=== PATIENT | male | born 1995 | race Caucasian/White ===

== ENCOUNTER 2017-08-16 22:54 | Inpatient (IN) | payer OTHER ==
[~2017-08-16] VITALS: Ht 170.2 cm; Wt 83.0 kg
[2017-08-16 23:11] VITALS: BP 132/77
--- NOTE | 2017-08-16 23:15 | NUR ---
PATIENT AMBULATED TO ER CHAIR D.
--- NOTE | 2017-08-16 23:17 | NUR ---
PATIENT IS A 22 Y/O MALE WHO PRESENTS TO THE ED C/O ABD PAIN. PT STATES THAT HIS LOWER ABD STARTED HURTING AT 1999. PT REPORTS 10/10 SHARP LOWER ABD PAIN. PT DENIES CP, SOB, REPORTS VOMITING DENIES NAUSEA/DIARRHEA. PT AAOX4, RR EVEN/UNLABORED. PT REPOSITIONED FOR COMFORT, BED IN LOWEST POSITION. ER MD DR. MOCK NOTIFIED. WILL CONTINUE TO MONITOR.
[2017-08-16] MEDS ORDERED: MORPHINE SULFATE 4 MG/ML SYR IVP ONE (23:30)
[2017-08-16] MEDS ORDERED: ONDANSETRON 4 MG/2 ML VIAL IVP ONE (23:30)
[2017-08-16] MEDS ORDERED: NACL 0.9% 1,000 ML IV ONE (23:30)
[2017-08-16 23:50] LABS: HEMATOCRIT 50.6 % (36-52); MEAN CORPUSCULAR HEMOGLOBIN 30 pg (27-31); MEAN CORPUSCULAR HGB CONC 34 g/dL (33-37); MEAN CORPUSCULAR VOLUME 88.2 fL (80-94); PLATELET COUNT (AUTO) 251 K/uL (140-450); RED BLOOD CELL COUNT(AUTO) 5.74 MIL/uL (4.20-6.10); RED CELL DISTRIBUTION WIDTH 13.8 % (11.6-13.7)
[2017-08-16 23:51] LABS: APPEARANCE,URINE CLEAR (CLEAR); BILIRUBIN,URINE NEGATIVE (NEGATIVE); BLOOD, URINE NEGATIVE (NEGATIVE); COLOR,URINE YELLOW (YELLOW); LEUKOCYTE ESTERASE ,URINE NEGATIVE (NEGATIVE); NITRITE, URINE NEGATIVE (NEGATIVE); PH,URINE 5.5 (5.0-9.0); UGLUCOSE NEGATIVE (NEGATIVE)
[2017-08-16 23:57] LABS: CARBON DIOXIDE 30.2 mmol/L (21-32); POTASSIUM 4.2 mmol/L (3.5-5.1)
[2017-08-17 00:03] LABS: ALBUMIN 4.9 g/dL (3.4-5.0); TOTAL BILIRUBIN 0.9 mg/dL (0.0-1.0)
[2017-08-17 00:06] LABS: WHITE BLOOD COUNT (AUTO) 15.6 K/uL (4.8-10.8)
[2017-08-17 00:07] LABS: LYMPHOCYTES % (MANUAL) 5 % (20-46); MONOCYTES % (MANUAL) 1 % (5-12)
[2017-08-17] MEDS ORDERED: MORPHINE SULFATE 4 MG/ML SYR IVP ONE ×2 (00:10→04:20)
--- NOTE | 2017-08-17 00:19 | NUR ---
PATIENT MOVED TO ER BED 11.
--- NOTE | 2017-08-17 01:40 | NUR ---
Patient appears to be resting comfortably in bed. Vital Signs within normal limits. Respirations even and unlabored.
[2017-08-17] MEDS ORDERED: PIPERACILLIN/TAZOBACTAM 3.375 GM in DEXTROSE 5% 50 ML IV ONE (01:45)
[2017-08-17] MEDS ORDERED: fentaNYL 0.05 MG/ML VIAL IVP ONE ×3 (01:45→03:50)
[2017-08-17] MEDS ORDERED: NACL 0.9% 1,000 ML IV ONE (01:45)
[2017-08-17] MEDS ORDERED: fentaNYL 0.05 MG/ML VIAL ONE (01:46)
[2017-08-17] MEDS ORDERED: PIPERACILLIN/TAZOBACTAM 3.375 GM VIAL IV ONE (02:11)
[2017-08-17] MEDS ORDERED: ONDANSETRON 4 MG/2 ML VIAL IVP ONE (03:50)
--- NOTE | 2017-08-17 04:00 | NUR ---
PT C/O PAIN AND NAUSEA, ADMINISTERED DUE MEDS ORDERED. PT TAKEN TO CT AT THIS TIME
--- NOTE | 2017-08-17 04:32 | NUR ---
CRITICAL CT RESULTS RECEIVED. SMALL BOWEL OBSTRUCTION, SMALL AMOUNT OF FREE FLUID WITHIN THE PELVIS. ER MD MADE AWARE.
--- NOTE | 2017-08-17 04:55 | NUR ---
INSERTED NGT WITH EDUCATION, PT AGREED AND VERBALIZED UNDERSTANDING. AFTER NGT INSERTION, PT STARTED VOMITING AND C/O DYSPNEA AND DISCOMFORT. PLACEMENT VERIFIED, SUCTIONED 300ML BROWN, SEROUS, BLOOD-TINGED DRAINAGE AND 300ML EMESIS. PT REFUSED TO KEEP NGT IN PLACE DESPITE EDUCATION, NGT REMOVED. PT REPORTS RELIEF OF PAIN AND NAUSEA. DR MOCK MADE AWARE. PT CLEANED AND CHANGED.
[2017-08-17] MEDS: NACL 0.9% 1,000 ML IV SCH ×3 (05:28→16:15)
[2017-08-17] MEDS ORDERED: HYDROcodone/APAP 7.5/325 MG 1 TAB PO PRN (05:30)
[2017-08-17] MEDS ORDERED: MORPHINE SULFATE 4 MG/ML SYR IVP PRN (05:45)
--- NOTE | 2017-08-17 06:00 | NUR ---
Patient will be admitted to care of [facility]. Admited to TELE. Will go to room 106A. Belongings list completed. Report to JUSTIN PATEL.
[2017-08-17 06:03] VITALS: BP 113/85
--- NOTE | 2017-08-17 06:15 | NUR ---
PT ARRIVED ON UNIT FROM THE ER, REPORT GIVEN BY HEATHER ANDERSON. PT IN STABLE CONDITION. NO S/S OF DISTRESS NOTED. PT AMBULATED FROM GURNEY TO THE BED. PT IS ON RA. IV TO L AC 18G, PATENT AND INTACT. SKIN WARM AND DRY TO TOUCH. RR EVEN/UNLABORED. INITIAL ASSESSMENT COMPLETED. PLAN OF CARE DISCUSSED WITH PT, VERBALIZED UNDERSTANDING. ALL SAFETY PRECAUTIONS MET, CALL LIGHT WITHIN REACH, BOARD UPDATED, WILL CONTINUE TO MONITOR
--- NOTE | 2017-08-17 06:35 | NUR ---
PT STATES HE CANNOT HANDLE THE PAIN ANYMORE, CONTACTED DR. KO SHE STATED IT IS OKAY TO GIVE MORPHINE
--- NOTE | 2017-08-17 07:03 | NUR ---
DR. CYR AND DR. KO IN TO SEE PT, THEY TOLD PT HE NEEDS THE NG TUBE HES BEEN REFUSING FOR THE OBSTRUCTION TO GET BETTER, PT AGREED
[2017-08-17] MEDS ORDERED: BENZOCAINE 20% 57 GM CAN MC SCH (07:22)
--- NOTE | 2017-08-17 07:25 | NUR ---
REPORT GIVEN TO DAY SHIFT NURSE FOR CONTINUITY OF CARE, PT IN STABLE CONDITION
--- NOTE | 2017-08-17 07:26 | NUR ---
RECEIVED SBAR REPORT FROM NIGHT RN AT PT BEDSIDE. PATIENT SEEN RESTING IN BED WITH MOTHER AT BEDSIDE. ALERT AND ORIENTED. RESTING INTERMITTENTLY, DENIES DISCOMFORT AT THIS TIME. CALL LIGHT WITHIN REACH. POSITIONED FOR COMFORT.
[2017-08-17 07:57] LABS: PROTHROMBIN TIME 10.7 secs (10.8-13.4)
[2017-08-17 08:00] VITALS: BP 142/85
[2017-08-17 08:06] LABS: CHOL/HDL RATIO 2.8 (1-4.5); FREE T4 (FREE THYROXINE) 0.9 ng/dL (0.76-1.46); MAGNESIUM 1.8 mg/dL (1.8-2.4); PHOSPHORUS 4.4 mg/dL (2.5-4.9); THYROID STIMULATING HORMONE 0.42 uIU/mL (0.34-3.74)
--- NOTE | 2017-08-17 08:30 | NUR ---
PATIENT SEEN BY DR. CYR AT BEDSIDE. MD AWARE OF INCREASED PAIN 02/17, MD PLACED ORDER FOR TORADOL IVP. MEDICATED ORDERED. NGT PLACED AT BEDSIDE TO LEFT NARE. PATIENT HAD EPISODE OF N/V, MEDICATED ORDERED WITH ZOFRAN IVP. WILL CONTINUE TO MONITOR.
[2017-08-17] MEDS: ONDANSETRON 4 MG/2 ML VIAL IVP PRN ×4 (08:45→22:08)
[2017-08-17] MEDS: KETOROLAC 30 MG/ML VIAL IVP PRN ×2 (08:45→18:17)
[2017-08-17 08:54] LABS: BARBITURATE, URINE NEG. ng/ml (NEG <=200); BENZODIAZEPINE, URINE NEG. ng/mL (NEG <=200); CANNABINOID, URINE NEG. ng/mL (NEG <=50); COCAINE, URINE NEG. ng/mL (NEG <=300); OPIATE, URINE NEG. ng/mL (NEG <=2000); PHENCYCLIDINE SCREEN,URINE NEG. ng/mL (NEG <=25)
[2017-08-17] MEDS: DOCUSATE SODIUM 100 MG GELCAP PO SCH ×2 (09:00→21:00)
--- NOTE | 2017-08-17 10:38 | NUR ---
PATIENT HAS BEEN SCREENED AND CATEGORIZED LOW NUTRITION RISK. PATIENT WILL BE SEEN WITHIN 7 DAYS OF ADMISSION. 08/23/[address] Addendum: 08/17/17 at [address] PATIENT HAS BEEN RESCREENED AND RECATEGORIZED MODERATE NUTRITION RISK. PATIENT WILL BE SEEN WITHIN 3-5 DAYS OF ADMISSION. 08/19/17 - 08/21/[address]
--- NOTE | 2017-08-17 11:38 | NUR ---
PATIENT REPORTS REDUCED PAIN, ASSISTED IN AMBULATION TO BATHROOM. NO S/S OF ACUTE DISTRESS NOTED. PER DR. CYR NGT TO LOW INTERMITTENT SUCTION.
[2017-08-17 12:00] VITALS: BP 127/85
[2017-08-17] MEDS ORDERED: BUPIVACAINE-MPF 0.25% 30 ML VIAL INJ ONE (12:51)
--- NOTE | 2017-08-17 13:00 | NUR ---
PATIENT HAVING INCREASED AGITATION/ANXIETY. SPOKE WITH DR. CYR REGARDING PATIENT CONDITION, NEW ORDERS RECEIVED. PATIENT REFUSES NGT AT THIS TIME. PROCEDURE AND PLAN OF CARE DISCUSSED WITH PATIENT BY DR. CYR AND EDUCATION PROVIDED REGARDING NGT PLACEMENT. PATIENT CONTINUES TO REFUSE AND STATES HE IS UNABLE TO BREATHE. REMOVED NGT AT THIS TIME, NO S/S OF ACUTE DISTRESS NOTED.
[2017-08-17] MEDS ORDERED: LORazepam 0.5 MG TAB PO PRN (13:05)
--- NOTE | 2017-08-17 13:25 | NUR ---
PATIENT MEDICATED ORDERED WITH ATIVAN PO. PATIENT RESTING IN BED. NO S/S OF ACUTE DISTRESS NOTED.
--- NOTE | 2017-08-17 14:48 | NUR ---
PATIENT SLEEPING. NO S/S OF ACUTE DISTRESS NOTED. DR. CYR MADE AWARE OF PATIENT NGT REFUSAL.
[2017-08-17] MEDS: traMADol 50 MG TAB PO PRN (15:08)
--- NOTE | 2017-08-17 15:17 | NUR ---
CM NOTE INITIAL REVIEW FAXED TO [facility] / FAX# [phone]
[2017-08-17 16:00] VITALS: BP 131/83
--- NOTE | 2017-08-17 16:16 | NUR ---
SECOND BAG OF IVF STARTED ON PATIENT. DENIES N/V. PAIN 08/18 PREVIOUSLY MEDICATED. NO S/S OF ACUTE DISTRESS NOTED. CONTINUES TO REFUSE NGT PLACEMENT.
--- NOTE | 2017-08-17 18:52 | NUR ---
PATIENT MEDICATED ORDERED FOR PAIN AND NAUSEA. NO S/S OF ACUTE DISTRESS NOTED. PATIENT SEEN BY DR. PEREIRA AT BEDSIDE, NEW ORDERS RECEIVED FOR CT ABD WITH CONTRAST. PATIENT MADE AWARE OF PLAN OF CARE BY MD AT BEDSIDE, IN AGREEMENT. CONTINUED ON NPO. IV STARTED ON KENROY #20, PATENT AND INTACT. PT POSITIONED FOR COMFORT.
--- NOTE | 2017-08-17 19:30 | NUR ---
SBAR REPORT GIVEN TO RN MARLENE AT PT BEDSIDE. NO S/S OF ACUTE DISTRESS NOTED. STATES RELIEF OF PAIN. FAMILY AT BEDSIDE.
--- NOTE | 2017-08-17 19:32 | NUR ---
RECEIVED PT FROM AFIA SINGH RN PT IS AAOX4 AMBULATORY IV N RT HAND INFUSING WELL HL ON LEF AC PATENT ON TELEMETRY SR PT WILL START PREPARATION FO CT ABD AND PELVIS WAITNG FOR RADIOLOGIST TECH TO GIVE PREPARTAION FOR TH TEST
[2017-08-17 20:00] VITALS: BP 124/64
--- NOTE | 2017-08-17 22:00 | NUR ---
PT ON CT ORAL CONTRAST PREPARATION WELL TOLERATED AND PT ALREADY HAD 2 BOWEL MOVEMENT ON TELE SR
[2017-08-18] VITALS: BP 120/64
--- NOTE | 2017-08-18 01:30 | NUR ---
PT CAME BACK FROM CT ABD WE WILL FOLLOW RESULT WITH THE DR PEREZ PT REMAIN WITH NOT PAIN
[2017-08-18 04:00] VITALS: BP 115/62
--- NOTE | 2017-08-18 04:00 | NUR ---
DR PEREIRA CALL AND WAS NOTIFY CT ABD RESULT
--- NOTE | 2017-08-18 04:30 | NUR ---
PT HAS ANOTHER BM SEMILIQUID STOOL ON TELEMETRY SR
[2017-08-18] MEDS: KETOROLAC 30 MG/ML VIAL IVP PRN ×3 (04:55→23:49)
--- NOTE | 2017-08-18 06:18 | NUR ---
PT SLEEPING NOT PAIN NOTED ON TELEMETRY SR PENDING SBFT THIS AM
--- NOTE | 2017-08-18 07:20 | NUR ---
RECEIVED REPORT AT BEDSIDE FROM ORTHOPAEDIC SURGEON NURSE FOR CONTINUITY OF CARE. PATIENT STABLE.
[2017-08-18 08:00] VITALS: BP 125/66
--- NOTE | 2017-08-18 08:00 | NUR ---
INITIAL ASSESSMENT PERFORMED.PATIENT ALERT AND ABLE TO VERBALIZE NEEDS. NO ACUTE DISTRESS NOTED. NO SOB. RESP EVEN AND UNLABORED/ LUNG SOUNDS CLEAR. PATIENT WITH BOWEL SOUNDS ACTIVE. PATIENT HAD BM THIS AM STATED IT WAS SOFT MUSH BUT FORMED.PATIENT TO GET XRAY OF SBO. RADIOLOGY INFORMED THAT PATIENT MAY STILL HAVE CONTRAST IN SYSTEM AND XRAY OF OF SBO WILL BE DONE FIRST WITHOUT THE UPPER GI WITH GASTROGAFFIN. PATIENT MADE AWARE. PATIENT WITH IV TO RAC 20G AND R HAND 22G. BOTH SL. PATENT AND INTACT. PATIENT CONT NPO.PATIENT DENIES PAIN AT THIS TIME. SKIN INTACT. PLAN OF CARE DISCUSSED WITH PATIENT AT BEDSIDE. PATIENT VERBALIZED UNDERSTANDING AND AGREEMENT. PATIENT ORIENTED TO ROOM. CALL LIGHT WITHIN REACH. WILL CONT TO MONITOR.
[2017-08-18] MEDS: DOCUSATE SODIUM 100 MG GELCAP PO SCH ×2 (09:00→21:58)
--- NOTE | 2017-08-18 09:43 | NUR ---
WILDA RODRIGEZ PATIENT STATED HE HAS BEEN HAVING SEVERAL BM THIS AM.
--- NOTE | 2017-08-18 10:30 | NUR ---
PATIENT IN ROOM SITTING IN CHAIR. ASKED PATIENT PAIN LEVEL STATED HE HAD SOME BLOATING. ENCOURAGED PATIENT TO AMBULATE TO SEE IF IT WOULD ASSIST WITH BLOATING. PATIENT AGREED AND AMBULATING. TO F/U WITH PAIN LEVEL AFTER.
[2017-08-18 11:29] LABS: BASOPHILS % (AUTO) 0.2 % (0.0-2.0); EOSINOPHILS # (AUTO) 0.1 K/uL (0-0.4); EOSINOPHILS % (AUTO) 1.8 % (0.0-4.0); HEMATOCRIT 44.6 % (36-52); HEMOGLOBIN 15.1 g/dL (12.0-18.0); LYMPHOCYTES # (AUTO) 1.3 K/uL (2.0-11.5); LYMPHOCYTES % (AUTO) 22.6 % (20.5-51.1); MEAN CORPUSCULAR HEMOGLOBIN 30 pg (27-31); MEAN CORPUSCULAR HGB CONC 34 g/dL (33-37); MONOCYTES # (AUTO) 0.8 K/uL (0.8-1.0); MONOCYTES % (AUTO) 13.7 % (1.7-9.3); NEUTROPHILS # (AUTO) 3.6 K/uL (1.8-7.7); NEUTROPHILS % (AUTO) 61.7 % (42.2-75.2); PLATELET COUNT (AUTO) 219 K/uL (140-450); RED BLOOD CELL COUNT(AUTO) 5.01 MIL/uL (4.20-6.10); RED CELL DISTRIBUTION WIDTH 13.6 % (11.6-13.7); WHITE BLOOD COUNT (AUTO) 5.8 K/uL (4.8-10.8)
[2017-08-18 11:51] VITALS: BP 126/80
[2017-08-18 12:08] LABS: CARBON DIOXIDE 30.5 mmol/L (21-32)
[2017-08-18 12:12] LABS: MAGNESIUM 2.1 mg/dL (1.8-2.4); PHOSPHORUS 2.3 mg/dL (2.5-4.9)
--- NOTE | 2017-08-18 12:30 | NUR ---
RADIOLOGY CALLED TO NOTIFY THAT PATIENT WILL BE PICKED UP VIA WC FOR UPPER GI WITH GASTROGAFFIN BY 1300. PATIENT AWARE AND IN AGREEMENT. MOTHER AT BEDSIDE. CALL LIGHT WITHIN REACH. WILL CONT TO MONITOR.
[2017-08-18 12:46] LABS: ANION GAP 11.5 (8-16)
--- NOTE | 2017-08-18 13:20 | NUR ---
PATIENT TAKEN TO RADIOLOGY. PATIENT SL. TICKET TO RIDE IN TECH POSSESSION. PATIENT STABLE.
--- NOTE | 2017-08-18 13:50 | NUR ---
FAXED TAZ REVIEW TO [facility] [phone] PHONE [phone]
--- NOTE | 2017-08-18 14:00 | NUR ---
PATIENT RETURNED FROM RADIOLOGY WITHOUT DIFFICULTIES. NO ACUTE DISTRESS NOTED. DENIES PAIN AT THIS TIME. WILL CONT TO MONITOR.
[2017-08-18 16:00] VITALS: BP 113/64
--- NOTE | 2017-08-18 16:30 | NUR ---
LAST XRAY DONE. PENDING RESULTS. PATIENT STATED HE HAD A LOOSE STOOL AFTER THE XRAY WAS DONE. PATIENT DENIES PAIN WILL CONT TO MONITOR.
--- NOTE | 2017-08-18 18:00 | NUR ---
PATIENT ALERT AND ABLE TO VERBALIZE NEEDS. MADE MD AWARE THAT RESULTS ARE AVAILABLE AND SHE STATED SHE WOULD CONSULT WITH SURGEON RNADALL. WILL CONT TO MONITOR PT.
[2017-08-18] MEDS: traMADol 50 MG TAB PO PRN (18:46)
[2017-08-18] MEDS: ONDANSETRON 4 MG/2 ML VIAL IVP PRN (18:50)
--- NOTE | 2017-08-18 19:15 | NUR ---
ENDORSED REPORT TO STRIP PRESSER NURSE AT BEDSIDE FOR CONT OF CARE. PATIENT STABLE.
--- NOTE | 2017-08-18 19:16 | NUR ---
RECEIVED PATIENT REPORT FROM [facility] NURSE TAYLOR. PT WAS AAO X4. AMBULATORY HEP LOCK R HAND 22G AND LAC 20G. ON TELEMETRY SR. DR PEREIRA AND DR MILLER AT BEDSIDE ASSESSING PATIENT AND WILL BE CLEAR LIQUID DIET TOLERATED AND ORDERS TO FOLLOW. NO SOB. NO PAIN AT THIS TIME. INITIAL ASSESSMENT DONE. BED LOWERED. CALL LIGHT WITHIN REACH. WILL CONTINUE TO MONITOR.
[2017-08-18 20:00] VITALS: BP 116/77
--- NOTE | 2017-08-18 22:00 | NUR ---
WENT TO ASSESS PT. PT AWAKE. NO PAIN OR NAUSEA. PT IS WATCHING TV RELAXING. NO SOB. NO S/S. PT TOLERATING CLEAR LIQUIDS WELL.
[2017-08-19] VITALS: BP 120/71
--- NOTE | 2017-08-19 00:01 | NUR ---
ASSESSED PATIENT. PT IN PAIN AND WILL MEDICATE. PT ALSO REQUESTED MORE JUICE AND ICE. PT IS TOLERATING CLEAR LIQUIDS WELL. WILL CONTINUE TO MONITOR.
[2017-08-19 04:00] VITALS: BP 102/69
[2017-08-19 06:42] LABS: BASOPHILS % (AUTO) 0.2 % (0.0-2.0); EOSINOPHILS # (AUTO) 0.2 K/uL (0-0.4); EOSINOPHILS % (AUTO) 2.4 % (0.0-4.0); HEMATOCRIT 41.4 % (36-52); LYMPHOCYTES # (AUTO) 1.6 K/uL (2.0-11.5); LYMPHOCYTES % (AUTO) 20.8 % (20.5-51.1); MEAN CORPUSCULAR HEMOGLOBIN 30 pg (27-31); MEAN CORPUSCULAR HGB CONC 34 g/dL (33-37); MEAN CORPUSCULAR VOLUME 88.7 fL (80-94); MONOCYTES # (AUTO) 1.2 K/uL (0.8-1.0); MONOCYTES % (AUTO) 15.9 % (1.7-9.3); NEUTROPHILS # (AUTO) 4.6 K/uL (1.8-7.7); NEUTROPHILS % (AUTO) 60.7 % (42.2-75.2); PLATELET COUNT (AUTO) 214 K/uL (140-450); RED BLOOD CELL COUNT(AUTO) 4.66 MIL/uL (4.20-6.10); RED CELL DISTRIBUTION WIDTH 13.5 % (11.6-13.7); WHITE BLOOD COUNT (AUTO) 7.6 K/uL (4.8-10.8)
--- NOTE | 2017-08-19 07:16 | NUR ---
RECEIVED REPORT AT BEDSIDE FROM FACING GRINDER NURSE.PATIENT STABLE IN BED . RESPONDING APPROPRIATELY. WILL CONT TO MONITOR.
[2017-08-19 07:26] LABS: ANION GAP 12.9 (8-16); CARBON DIOXIDE 28.8 mmol/L (21-32); CREATININE 0.9 mg/dL (0.7-1.3); POTASSIUM 3.7 mmol/L (3.5-5.1)
--- NOTE | 2017-08-19 07:31 | NUR ---
GAVE REPORT TO DAY SHIFT JOSE LUIS ANDERSON NURSE AT BEDSIDE FOR CONTINUITY OF CARE. Addendum: 08/19/17 at 0734 by Amber Mendes RN GAVE REPORT TO DAY SHIFT NURSE TAYLOR ANDERSON AT BEDSIDE FOR CONTINUITY OF CARE.
[2017-08-19 07:33] LABS: MAGNESIUM 1.9 mg/dL (1.8-2.4); PHOSPHORUS 3.8 mg/dL (2.5-4.9)
--- NOTE | 2017-08-19 07:56 | NUR ---
INITIAL ASSESSMENT PERFORMED. PATIENT ALERT AND ABLE TO MAKE NEEDS KNOWN. NO ACUTE DISTRESS NOTED. DENIES PAIN AT THIS TIME. LUNG SOUNDS CLEAR . BOWEL SOUNDS ACTIVE. PATIENT REPORTED HAVING A FEW BMS DURING THE NIGHT. PATIENT STATED HE IS TOLERATING THE CLEAR LIQUID DIET WELL. NO N/V REPORTED. WILL REPORT TO MD FOR FULL LIQUID DIET. PLAN OF CARE DISCUSSED WITH PATIENT. SKIN INTACT. IV SITES PATENT AND INTACT TO LAC 20G AND R HAND 22G. SL. PATIENT ORIENTED TO ROOM. CALL LIGHT WITHIN REACH. WILL CONT OT MONITOR.
[2017-08-19 07:58] VITALS: BP 113/67
[2017-08-19] MEDS: DOCUSATE SODIUM 100 MG GELCAP PO SCH ×2 (09:00→20:26)
--- NOTE | 2017-08-19 09:00 | NUR ---
HELD COLACE THIS AM. PATIENT STATES HE IS HAVING FREQUENT BMS AND DOES NOT NEED MEDICATION.
--- NOTE | 2017-08-19 10:24 | NUR ---
PATIENT TRANSFER OF CARE FROM TELEMETRY TO MARTY SURG. PATIENT TELE MONITOR REMOVED. PATIENT AWAKE ALERT IN BED WATCHING TV. PATIENT. INFORMED DR CYR PT TOLERATING DIET WELL OF CLEAR LIQUIDS AND WILL UPGRADE TO FULL LIQUIDS.
--- NOTE | 2017-08-19 11:47 | NUR ---
PATIENT ALERT AND ABLE TO MAKE NEEDS KNOWN. NO ACUTE DISTRESS NOTED . NO C/O PAIN OR DISCOMFORT. WILL CONT TO MONITOR.
--- NOTE | 2017-08-19 13:06 | NUR ---
PATIENT HAD FULL LIQUID DIET FOR LUNCH. PATIENT TOLERATED WELL. HE STATED NO N/V. HE FELT SLIGHTLY BLOATED BUT BELIEVES IT MAY BE THAT HE ATE TO FAST. FNS IN TO SEE PATIENT WELL. WILL CONT TO MONITOR.
--- NOTE | 2017-08-19 14:33 | NUR ---
FAXED TAZ REVIEW TO [facility] [phone] PHONE [phone]
--- NOTE | 2017-08-19 15:00 | NUR ---
PATIENT ALERT AND ABLE TO MAKE NEEDS KNOWN. NO ACUTE DISTRESS NOTED. DENIES PAIN AT THIS TIME. WILL CONT TO MONTIOR.
[2017-08-19 16:00] VITALS: BP 124/76
--- NOTE | 2017-08-19 16:48 | NUR ---
08/19/17 RD INITIAL ASSESSMENT COMPLETED PLEASE REFER TO NUTRITION ASSESSMENT UNDER CARE ACTIVITY FOR ESTIMATED NUTRITIONAL NEEDS. 1.CONTINUE FULL LIQUID DIET, TOLERATED BY PT 2. PROVIDE PT WITH FULL LIQUID DIET EDUCATION 3. RD TO FOLLOW-UP 3-5 DAYS, MODERATE RISK ANGELES CRUZ RD
--- NOTE | 2017-08-19 17:45 | NUR ---
PATIENT HAVING DINNER OF FULL LIQUIDS TOLERATING WELL. WILL CONT TO MONITOR.
--- NOTE | 2017-08-19 19:00 | NUR ---
ENDORSED REPORT TO LEGAL BILLING ANALYST NURSE AT BEDSIDE FOR CONTINUITY OF CARE. PATIENT STABLE.
--- NOTE | 2017-08-19 19:30 | NUR ---
NO COMPLAINS. FAMILY AT BEDSIDE. PLAN OF CARE DISCUSSED WITH PATIENT AND FAMILY MEMBER, VERBALIZED UNDERSTANDING WELL. CALL LIGHT WITHIN REACH.
--- NOTE | 2017-08-19 19:30 | NUR ---
ASSUMED CARE OF PATIENT, AWAKE, ALERT AND ORIENTED. NO COMPLAINS. FAMILY AT BEDSIDE. CALL LIGHT WITHIN REACH.
--- NOTE | 2017-08-19 20:00 | NUR ---
PLAN OF CARE DISCUSSED WITH PATIENT AND FAMILY MEMBER, VERBALIZED UNDERSTANDING WELL. CALL LIGHT WITHIN REACH.
--- NOTE | 2017-08-19 21:30 | NUR ---
AMBULATING IN HALLWAY. NO COMPLAINS.
[2017-08-19 23:58] VITALS: BP 122/70
--- NOTE | 2017-08-19 23:59 | NUR ---
SNACK REQUESTED AND GIVEN. NO COMPLAINS. VITAL SIGNS STABLE. AFEBRILE. CALL LIGHT WITHIN REACH.
--- NOTE | 2017-08-20 05:12 | NUR ---
NO COMPLAINS. ASLEEP NOTED. CALL LIGHT WITHIN REACH.
--- NOTE | 2017-08-20 07:23 | NUR ---
ENDORSED CARE AT BEDSIDE WITH PRANEETH RN, PATIENT IN STABLE CONDITION.
--- NOTE | 2017-08-20 07:30 | NUR ---
RECEIVED PT ON BED AAOX4. NO SOB NOTED. NO C/O PAIN AT THIS TIME. IV TO RT AND LT HAND PATENT AND INTACT. CHEST, CLEAR. ABDOMEN SOFT, BOWEL SOUNDS PRESENT. NO EDEMA NOTED. INSTRUCTED PT TO CALL FOR ASSISTANCE, CALL LIGHT WITHIN REACH. PT VERBALIZED UNDERSTANDING.
[2017-08-20 08:00] VITALS: BP 117/67
--- NOTE | 2017-08-20 08:15 | NUR ---
PT TOLERATED FULL LIQUID DIET. NO N&V NOTED.
--- NOTE | 2017-08-20 08:55 | NUR ---
FAXED TAZ REVIEW TO [facility] [phone] PHONE [phone]
[2017-08-20] MEDS: DOCUSATE SODIUM 100 MG GELCAP PO SCH (09:00)
[2017-08-20] MEDS ORDERED: SIME80CT70 PO (09:08)
--- NOTE | 2017-08-20 10:00 | NUR ---
PT AMBULATING IN THE HALLWAY COUPLE TIMES. NO SOB NOTED. NO COMPLAINTS MADE. PT TOLERATED ACTIVITY WELL. PT STATED HE HAS BEEN PASSING GAS.
--- NOTE | 2017-08-20 12:30 | NUR ---
PT TOLERATED FULL LIQUID DIET FOR LUNCH. NO N&V NOTED.
--- NOTE | 2017-08-20 13:00 | NUR ---
DISCHARGE INSTRUCTIONS AND PRESCRIPTIONS GIVEN TO PT WHICH VERBALIZED FULL UNDERSTANDING OF THE INSTRUCTIONS GIVEN AND THE NEED TO FOLLOW UP WITH [facility] AND DR. PEREIRA IN 7 DAYS. ARM BANDS AND IV REMOVED, CANNULA TIP INTACT. ESCORTED PT TO THE FRONT LOBBY, AMBULATORY, IN STABLE CONDITION. NO COMPLAINTS MADE.
== END 2017-08-20 13:00 | disposition home or self-care (01) | DRG 389 ==
LOC: MED 22:54 → MTU 08-17 05:33
PROVIDERS: ADMIT Family Medicine Sports Medicine; ATTEND Family Medicine Sports Medicine
DX: K56.609 Unspecified intestinal obstruction, unspecified as to partial versus complete obstruction (principal); R65.10 Systemic inflammatory response syndrome (SIRS) of non-infectious origin without acute organ dysfunction; E66.3 Overweight; R74.0 Nonspecific elevation of levels of transaminase and lactic acid dehydrogenase [LDH]; K37 Unspecified appendicitis; Z53.20 Procedure and treatment not carried out because of patient's decision for unspecified reasons; Z68.28 Body mass index [BMI] 28.0-28.9, adult
CPT/HCPCS: 36415; 71045; 74241; 74250; 76705; 80048; 80053; 80305; 81003; 82150; 83036; 83605; 83690; 83735; 83880; 84100; 84439; 84443; 84484; 85025; 85610; 85730; 87040; 87081; 93005; 96361; 96365; 96375; 96376; 99285; J1885; J2270; J2405; J2543; J3010; J3490; J7030; Q0092; Q9967

== ENCOUNTER 2017-12-05 13:21 | Emergency (ER) | payer OTHER ==
[~2017-12-05] VITALS: Ht 177.8 cm; Wt 79.4 kg
[~2017-12-05 13:21] MED LIST: SIME80CT70 PO
[2017-12-05 13:30] VITALS: BP 113/58
--- NOTE | 2017-12-05 13:40 | NUR ---
facial trauma ---left temporal area blunt force injury when yolette hammer bit flung striking pt small hematoma to 1 1/4 inch lac area--tender to left sided facial area ===denies ko, no n/v-- last tetanus shot <5 yrs ago . DENIES N/V/D; SKIN IS PINK/WARM/DRY; AAOX4 WITH EVEN AND STEADY GAIT; LUNGS CLEAR BL; HR EVEN AND REGULAR; PT DENIES ANY FEVER, CP, SOB, OR COUGH AT THIS TIME; PATIENT STATES PAIN OF 7/10 AT THIS TIME; VSS; PATIENT POSITIONED FOR COMFORT; HOB ELEVATED; BEDRAILS UP X2; BED DOWN. ER MD MADE AWARE OF PT STATUS. pt's brother at bedside.
[2017-12-05] MEDS ORDERED: NEOMYCIN/POLYMYXIN/BACITRACIN 0.9 GM/1 PKT TP ONE ×2 (13:50)
[2017-12-05 14:28] VITALS: BP 115/69
--- NOTE | 2017-12-05 14:30 | NUR ---
Patient discharged with v/s stable. Written and verbal after care instructions given and explained. Patient alert, oriented and verbalized understanding of instructions. Ambulatory with steady gait. All questions addressed prior to discharge. ID band removed. Patient advised to follow up with PMD. Rx of MOTRIN AND KEFLEX given. Patient educated on indication of medication including possible reaction and side effects. Opportunity to ask questions provided and answered.
== END 2017-12-05 14:30 | disposition home or self-care (01) ==
LOC: MED 13:21
DX: S01.112A Laceration without foreign body of left eyelid and periocular area, initial encounter (principal); W22.8XXA Striking against or struck by other objects, initial encounter; Y93.89 Activity, other specified; Y92.89 Other specified places as the place of occurrence of the external cause; Y99.8 Other external cause status
CPT/HCPCS: 99283